=== PATIENT | female | born 1985 | race Caucasian/White ===

== ENCOUNTER 2022-05-25 15:56 | Emergency (ER) | payer OTHER ==
[~2022-05-25] VITALS: Ht 165.1 cm; Wt 82.0 kg
[2022-05-25] MEDS ORDERED: PERTUSS(ACELL),DIPH,TET VAC/PF 0.5 ML SYRINGE IM. ONE (17:15)
[2022-05-25] MEDS ORDERED: AMOX1TAB16 PO ×2 (17:17→17:45)
[2022-05-25 17:27] VITALS: BP 122/89
== END 2022-05-25 17:54 | disposition home or self-care (01) ==
LOC: EMS 15:59
DX: S81.852A Open bite, left lower leg, initial encounter (principal); Z98.890 Other specified postprocedural states; Z87.891 Personal history of nicotine dependence; W54.0XXA Bitten by dog, initial encounter; Y93.89 Activity, other specified; Y92.89 Other specified places as the place of occurrence of the external cause; Y99.8 Other external cause status; Y92.513 Shop (commercial) as the place of occurrence of the external cause
CPT/HCPCS: 90471; 90715; 99283